=== PATIENT | male | born 1990 | race Caucasian/White ===

== ENCOUNTER 2018-09-12 16:23 | Emergency (ER) | payer BC, OTHER ==
[2018-09-12] MEDS ORDERED: Cyclobenzaprine 10 MG TAB ONE ×2 (16:41→16:42)
[2018-09-12] MEDS ORDERED: Ketorolac Tromethamine 30 MG/ML VIAL ONE (16:41)
[2018-09-12] MEDS ORDERED: Ketorolac Tromethamine 60 MG/2 ML VIAL ONE (16:42)
== END 2018-09-12 17:20 | disposition home or self-care (01) ==
LOC: ERS 16:23
DX: M54.5 Low back pain (principal)
CPT/HCPCS: 96372; 99283; J1885